=== PATIENT | female | born 1935 | race Caucasian/White ===

== ENCOUNTER → 2021-02-21 11:10 | Outpatient (BNVA) | payer MEDICARE, SELFPAY | PROVIDERS: Visit Provider Family Medicine | DX: I10 Essential (primary) hypertension (principal); E78.5 Hyperlipidemia, unspecified; I16.0 Hypertensive urgency; E78.2 Mixed hyperlipidemia; R01.1 Cardiac murmur, unspecified | CPT/HCPCS: 80053; 80061 ==

== ENCOUNTER → 2022-02-14 10:54 | Outpatient (BNVA) | payer MEDICARE, SELFPAY | PROVIDERS: PCP Family Medicine; Visit Provider Family Medicine | DX: Z00.00 Encounter for general adult medical examination without abnormal findings (principal); I10 Essential (primary) hypertension; E78.2 Mixed hyperlipidemia | CPT/HCPCS: 80053; 80061 ==

== ENCOUNTER → 2023-04-10 11:14 | Outpatient (BNVA) | payer MEDICARE, SELFPAY | PROVIDERS: PCP Family Medicine; Visit Provider Family Medicine | DX: I10 Essential (primary) hypertension (principal); E78.5 Hyperlipidemia, unspecified; K14.8 Other diseases of tongue; J30.2 Other seasonal allergic rhinitis; L50.0 Allergic urticaria; E78.2 Mixed hyperlipidemia | CPT/HCPCS: 80053; 80061 ==

== ENCOUNTER → 2023-05-07 15:58 | Outpatient (BNVA) | payer MEDICARE, SELFPAY | PROVIDERS: PCP Family Medicine; Visit Provider Otolaryngology | DX: H61.23 Impacted cerumen, bilateral (principal); K13.70 Unspecified lesions of oral mucosa; K13.21 Leukoplakia of oral mucosa, including tongue; H60.543 Acute eczematoid otitis externa, bilateral | CPT/HCPCS: 69210; 99204 ==

== ENCOUNTER → 2023-06-11 13:28 | Outpatient (BNVA) | payer MEDICARE, SELFPAY | PROVIDERS: PCP Family Medicine; Visit Provider Otolaryngology | DX: K13.70 Unspecified lesions of oral mucosa (principal); H60.543 Acute eczematoid otitis externa, bilateral | CPT/HCPCS: 99213 ==

== ENCOUNTER → 2024-04-01 11:11 | Outpatient (BNVA) | payer MEDICARE, SELFPAY | PROVIDERS: PCP Family Medicine; Visit Provider Family Medicine | DX: E78.5 Hyperlipidemia, unspecified (principal); I10 Essential (primary) hypertension; L25.9 Unspecified contact dermatitis, unspecified cause | CPT/HCPCS: 80053; 80061 ==

== ENCOUNTER → 2024-07-16 10:13 | Outpatient (BNVA) | payer MEDICARE, SELFPAY | PROVIDERS: PCP Family Medicine; Referring Provider Family Medicine; Visit Provider Nurse Practitioner Family | DX: L40.0 Psoriasis vulgaris (principal); L82.1 Other seborrheic keratosis; L81.4 Other melanin hyperpigmentation | CPT/HCPCS: 99204 ==

== ENCOUNTER → 2024-07-29 08:57 | Outpatient (BNVA) | payer MEDICARE, SELFPAY | PROVIDERS: PCP Family Medicine; Visit Provider Nurse Practitioner Family | DX: B02.9 Zoster without complications (principal); L40.0 Psoriasis vulgaris | CPT/HCPCS: 99214 ==